=== PATIENT | male | born 1970 | race Caucasian/White ===

== ENCOUNTER 2017-11-10 06:57 | Emergency (ER) | payer BC ==
[~2017-11-10] VITALS: Ht 167.6 cm; Wt 63.9 kg
[~2017-11-10 06:57] MED LIST: AMOX-422 PO; ONDA4TAB6 PO; OXYC20TA40 PO
[2017-11-10] MEDS ORDERED: oxyCODONE IR 5mg (immed. release) tablet PO ONE ×2 (08:45→14:50)
[2017-11-10 09:19] LABS: BASOPHILS % (AUTO) 0.2 % (0-1); EOSINOPHILS # (AUTO) 0.3 X10'3 (0-0.9); EOSINOPHILS % (AUTO) 3.1 % (0-6); HEMATOCRIT 38.3 % (42.0-52.0); HEMOGLOBIN 12.6 g/dl (14.0-17.9); LYMPHOCYTES # (AUTO) 0.8 X10'3 (1.1-4.8); LYMPHOCYTES % (AUTO) 8.1 % (21-51); MEAN CORPUSCULAR HEMOGLOBIN 28.2 PG (27.0-31.0); MEAN CORPUSCULAR HGB CONC 32.7 % (33.0-36.5); MEAN CORPUSCULAR VOLUME 86.2 FL (78-98); MEAN PLATELET VOLUME 6.9 FL (7.4-10.4); MONOCYTES # (AUTO) 0.9 X10'3 (0-0.9); MONOCYTES % (AUTO) 8.7 % (2-12); NEUTROPHILS # (AUTO) 8.2 X10'3 (1.8-7.7); NEUTROPHILS % (AUTO) 79.9 % (42-75); PLATELET COUNT 521 X10'3 (140-440); RED BLOOD COUNT 4.45 X10'6 (4.70-6.10); WHITE BLOOD COUNT 10.3 X10'3 (4.5-11.0)
[2017-11-10 09:36] LABS: ALANINE AMINOTRANSFERASE 25 U/L (12-78); ALBUMIN 3.3 G/DL (3.4-5.0); ALBUMIN/GLOBULIN RATIO 0.8 (1.1-1.5); ALKALINE PHOSPHATASE 72 IU/L (46-116); ANION GAP 7 (8-16); ASPARTATE AMINO TRANSFERASE 17 U/L (10-37); BILIRUBIN,TOTAL 0.2 MG/DL (0.1-1.0); BLOOD UREA NITROGEN 17 MG/DL (7-18); CALCIUM 9.8 MG/DL (8.5-10.1); CHLORIDE 106 MMOL/L (99-107); GLUCOSE 85 MG/DL (70-104); MAGNESIUM 2.3 MG/DL (1.5-2.4); PHOSPHORUS 3.7 MG/DL (2.3-4.5); POTASSIUM 4.6 MMOL/L (3.5-5.1); SODIUM 143 MMOL/L (135-145); TOTAL CARBON DIOXIDE 30.4 MMOL/L (24-32); TOTAL PROTEIN 7.7 G/DL (6.4-8.2); eGFR 79 ML/MIN
[2017-11-10 10:53] VITALS: BP 118/98
[2017-11-10] MEDS ORDERED: iohexol 300mg/ml 100ml inj. ONE (11:52)
[2017-11-10] MEDS ORDERED: OXYC-658 PO (15:25)
== END 2017-11-11 01:48 | disposition home or self-care (01) ==
LOC: ER 06:59
DX: K60.4 Rectal fistula (principal); L98.8 Other specified disorders of the skin and subcutaneous tissue; Z85.038 Personal history of other malignant neoplasm of large intestine; Z98.890 Other specified postprocedural states; Z93.6 Other artificial openings of urinary tract status
CPT/HCPCS: 36415; 72193; 80053; 83735; 84100; 85025; 99285; Q9967; J2270

== ENCOUNTER 2017-12-15 15:24 | Emergency (ER) | payer BC, MEDICAID ==
[~2017-12-15] VITALS: Ht 180.3 cm; Wt 62.7 kg
[~2017-12-15 15:24] MED LIST changes: -AMOX-422 PO
[2017-12-15 16:53] VITALS: BP 93/47
[2017-12-19] MEDS ORDERED: CEFD300C3 PO (14:54)
[2017-12-19] MEDS ORDERED: NUT.237L32 PO (14:54)
== END 2017-12-15 16:54 | disposition home or self-care (01) ==
LOC: ER 15:25
DX: Z43.6 Encounter for attention to other artificial openings of urinary tract (principal); R10.84 Generalized abdominal pain; N32.2 Vesical fistula, not elsewhere classified; Z85.038 Personal history of other malignant neoplasm of large intestine; Z92.3 Personal history of irradiation
CPT/HCPCS: 99283; A6449

== ENCOUNTER 2018-01-14 12:14 | Emergency (ER) | payer MEDICAID ==
[~2018-01-14] VITALS: Ht 180.3 cm; Wt 59.1 kg
[~2018-01-14 12:14] MED LIST changes: +HYDR4TAB45 PO; -ONDA4TAB6 PO; -OXYC20TA40 PO
[2018-01-14] MEDS ORDERED: LIDOcaine 1% 30ml preserv. free vial SQ STA (12:51)
[2018-01-14] MEDS ORDERED: ondansetron 4mg rapidly disintigrating tab PO ONE (12:55)
[2018-01-14] MEDS ORDERED: morphine 4 MG/ML inj SYRINge IM ONE (12:55)
[2018-01-14 13:13] LABS: BASOPHILS % (AUTO) 0 % (0-1); EOSINOPHILS # (AUTO) 0.3 X10'3 (0-0.9); EOSINOPHILS % (AUTO) 1.5 % (0-6); HEMOGLOBIN 8.4 g/dl (14.0-17.9); LYMPHOCYTES # (AUTO) 0.5 X10'3 (1.1-4.8); LYMPHOCYTES % (AUTO) 2.5 % (21-51); MEAN CORPUSCULAR HGB CONC 33.6 % (33.0-36.5); MEAN CORPUSCULAR VOLUME 77.3 FL (78-98); MEAN PLATELET VOLUME 6.8 FL (7.4-10.4); MONOCYTES # (AUTO) 1.3 X10'3 (0-0.9); MONOCYTES % (AUTO) 6.7 % (2-12); NEUTROPHILS # (AUTO) 17.7 X10'3 (1.8-7.7); NEUTROPHILS % (AUTO) 89.3 % (42-75); PLATELET COUNT 635 X10'3 (140-440); RED BLOOD COUNT 3.24 X10'6 (4.70-6.10); RED CELL DISTRIBUTION WIDTH 21.4 % (11.5-14.5); WHITE BLOOD COUNT 19.8 X10'3 (4.5-11.0)
[2018-01-14] MEDS ORDERED: SULF1TAB48 PO (14:01)
[2018-01-14] MEDS ORDERED: CLIN300C3 PO (14:03)
[2018-01-14] MEDS ORDERED: HYDROmorphone 2mg tablet PO STA (14:04)
[2018-01-14 14:35] VITALS: BP 108/79
[2018-01-14 16:12] LABS: TOTAL CELLS COUNTED 100
[2018-01-14 16:13] LABS: LARGE PLATELETS FEW; LYMPHOCYTES % (MANUAL) 3 % (21-51); PLATELET ESTIMATE INCREASED
[2018-01-14 16:15] LABS: HYPOCHROMASIA 1+; POLYCHROMASIA FEW; TOXIC GRANULATION 1+
[2018-01-14 16:16] LABS: EOSINOPHILS % (MANUAL) 1 % (0-6); MONOCYTES % (MANUAL) 5 % (2-12); NEUTROPHILS % (MANUAL) 91 % (42-75); TARGET CELLS 1+
[2018-01-14 16:19] LABS: MICROCYTOSIS 2+
[2018-01-14 16:20] LABS: ANISOCYTOSIS 2+
== END 2018-01-14 14:36 | disposition home or self-care (01) ==
LOC: ER 12:15
DX: L02.212 Cutaneous abscess of back [any part, except buttock and flank] (principal); Z85.038 Personal history of other malignant neoplasm of large intestine; Z88.8 Allergy status to other drugs, medicaments and biological substances; Z79.899 Other long term (current) drug therapy
CPT/HCPCS: 10061; 36415; 85025; 87070; 96372; 99284; A6266; A6449; J2270; J3490; 87077; 87186

== ENCOUNTER 2018-01-16 08:06 | Emergency (ER) | payer MEDICAID ==
[~2018-01-16] VITALS: Ht 180.3 cm; Wt 53.3 kg
[~2018-01-16 08:06] MED LIST changes: +CLIN300C3 PO; +SULF1TAB48 PO
[2018-01-16] MEDS ORDERED: normal saline 1000ML IV soln IV ONE (11:10)
[2018-01-16] MEDS ORDERED: vancomycin/NS 1 GM ADD-VANTAGE 250 ML IV ONE (11:10)
[2018-01-16 11:44] LABS: BASOPHILS % (AUTO) 0.1 % (0-1); EOSINOPHILS # (AUTO) 0.1 X10'3 (0-0.9); EOSINOPHILS % (AUTO) 0.6 % (0-6); HEMATOCRIT 23.7 % (42.0-52.0); HEMOGLOBIN 7.8 g/dl (14.0-17.9); LYMPHOCYTES # (AUTO) 0.5 X10'3 (1.1-4.8); LYMPHOCYTES % (AUTO) 2.3 % (21-51); MEAN CORPUSCULAR HEMOGLOBIN 25.5 PG (27.0-31.0); MEAN CORPUSCULAR VOLUME 77.3 FL (78-98); MEAN PLATELET VOLUME 7.4 FL (7.4-10.4); MONOCYTES # (AUTO) 1.1 X10'3 (0-0.9); MONOCYTES % (AUTO) 5.2 % (2-12); NEUTROPHILS % (AUTO) 91.8 % (42-75); PLATELET COUNT 615 X10'3 (140-440); RED BLOOD COUNT 3.06 X10'6 (4.70-6.10); RED CELL DISTRIBUTION WIDTH 21.1 % (11.5-14.5); WHITE BLOOD COUNT 20.6 X10'3 (4.5-11.0)
[2018-01-16 11:58] LABS: INR 1.1 INR; PARTIAL THROMBOPLASTIN TIME 31 SECONDS (22-32)
[2018-01-16 12:08] LABS: ALANINE AMINOTRANSFERASE 29 U/L (12-78); ALBUMIN 1.7 G/DL (3.4-5.0); ALBUMIN/GLOBULIN RATIO 0.3 (1.1-1.5); ALKALINE PHOSPHATASE 152 IU/L (46-116); ANION GAP 13 (8-16); ASPARTATE AMINO TRANSFERASE 24 U/L (10-37); BILIRUBIN,TOTAL 0.3 MG/DL (0.1-1.0); BLOOD UREA NITROGEN 38 MG/DL (7-18); BUN/CREATININE RATIO 18.5 (5.4-32.0); CALCIUM 9.2 MG/DL (8.5-10.1); CHLORIDE 97 MMOL/L (99-107); CREATININE 2.05 MG/DL (0.60-1.10); GLUCOSE 99 MG/DL (70-104); MAGNESIUM 2.1 MG/DL (1.5-2.4); SODIUM 133 MMOL/L (135-145); TOTAL CARBON DIOXIDE 22.7 MMOL/L (24-32); TOTAL PROTEIN 7.7 G/DL (6.4-8.2); eGFR 35 ML/MIN
[2018-01-16 12:10] LABS: POTASSIUM 4.8 MMOL/L (3.5-5.1)
[2018-01-16] MEDS ORDERED: HYDROmorphone 2mg tablet PO ONE ×2 (12:55→16:20)
[2018-01-16 13:07] LABS: CLARITY,URINE Turbid (Clear); COLOR,URINE Yellow (Yellow); GLUCOSE, URINE Negative (Neg); KETONES,URINE Negative (Neg); LEUKOCYTE ESTERASE ,URINE Large (Neg); NITRITES, URINE Negative (Neg); OCCULT BLOOD,URINE Moderate (Neg); PROTEIN,URINE 30 mg/dl (Neg); UROBILINOGEN,URINE 0.2 E.U/dL (0.2-1.0)
[2018-01-16 13:13] LABS: UA COLLECTION TYPE STRAIGHT CATH
[2018-01-16] MEDS ORDERED: LIDOcaine 2% 10ml TOPICAL JELLY (Urojet) MM ONE (13:30)
[2018-01-16 13:34] LABS: WBC,URINE TNTC /HPF (0-4)
[2018-01-16 13:35] LABS: BACTERIA,URINE 3+ /HPF (Neg); SQUAMOUS EPITHELIAL CELL,UR FEW /LPF (FEW)
[2018-01-16] MEDS ORDERED: CEPH-572 PO (16:21)
[2018-01-16] MEDS ORDERED: ondansetron/PF 4mg/2ml inj IV ONE (16:25)
[2018-01-16 16:54] VITALS: BP 105/67
== END 2018-01-16 16:56 | disposition home or self-care (01) ==
LOC: ER 08:07
DX: Z48.01 Encounter for change or removal of surgical wound dressing (principal); L02.211 Cutaneous abscess of abdominal wall; N39.0 Urinary tract infection, site not specified; C18.9 Malignant neoplasm of colon, unspecified; Z98.890 Other specified postprocedural states; Z90.89 Acquired absence of other organs; Z93.3 Colostomy status; Z88.1 Allergy status to other antibiotic agents; Z79.899 Other long term (current) drug therapy; Z85.038 Personal history of other malignant neoplasm of large intestine
CPT/HCPCS: 36415; 51702; 74176; 80053; 81001; 83605; 83735; 85025; 85610; 85730; 87040; 87077; 87088; 87186; 93005; 96365; 96366; 96375; 99285; A6266; A6449; C1758; J2405; J3370; J7030; A4353